=== PATIENT | female | born 1955 | race Caucasian/White ===

== ENCOUNTER 2017-08-31 14:02 | Emergency (ER) | payer SELFPAY ==
[2017-08-31] MEDS ORDERED: MECLIZINE HCL 25 MG TABLET ONE (14:34)
[2017-08-31] MEDS ORDERED: DEXAMETHASONE SOD PHOSPHATE 10MG/ML 1ML VIAL ONE (14:34)
[2017-08-31] MEDS ORDERED: SODIUM CHLORIDE 0.9% 1000ML 1,000 ML IV ONE (14:34)
[2017-08-31] MEDS ORDERED: ONDANSETRON HCL 4 MG/2 ML VIAL ONE (14:34)
[2017-08-31 14:45] LABS: BASOPHILS % (AUTO) 0.9 % (0.0-5.0); HEMATOCRIT 46.4 % (36-48); LYMPHOCYTES % (AUTO) 35.4 % (21.0-51.0); MEAN CORPUSCULAR HEMOGLOBIN 31.6 pg (27.0-33.0); MEAN CORPUSCULAR HGB CONC 34.8 g/dL (32.0-36.0); MEAN CORPUSCULAR VOLUME 90.8 fL (79-99); MONOCYTES % (AUTO) 5.5 % (3.0-13.0); NEUTROPHILS % (AUTO) 57.2 % (40.0-77.0); PLATELET COUNT (AUTO) 364 K/uL (130-400); RED BLOOD CELL COUNT(AUTO) 5.11 MIL/uL (4.00-5.50); RED CELL DISTRIBUTION WIDTH 14.3 % (11.0-15.5); WHITE BLOOD COUNT (AUTO) 7.8 K/uL (4.8-10.8)
[2017-08-31 14:54] LABS: CREATININE 0.7 mg/dL (0.5-1.5)
[2017-08-31 14:59] LABS: ALBUMIN 3.8 g/dL (3.5-5.0); BILIRUBIN,TOTAL 0.4 mg/dL (0.2-1.0); TOTAL PROTEIN, SERUM 7.4 g/dL (6.0-8.3)
[2017-08-31] MEDS ORDERED: LORATADINE 10 MG TABLET ONE (15:18)
[2017-08-31 15:35] LABS: APPEARANCE,URINE Clear (CLEAR); BILIRUBIN,URINE Negative (NEGATIVE); COLOR,URINE Yellow (YELLOW); GLUCOSE, URINE (UA) Negative (NEGATIVE); KETONES,URINE Negative (NEGATIVE); LEUKOCYTE ESTERASE ,URINE Negative (NEGATIVE); NITRATE,URINE Negative (NEGATIVE); OCCULT BLOOD,URINE Negative (NEGATIVE); PH,URINE 6.5 (5.0-8.0); PROTEIN,URINE Negative (NEGATIVE); UROBILINOGEN,URINE 0.2 mg/dL (0.2-1.0)
== END 2017-08-31 16:23 | disposition home or self-care (01) ==
LOC: EDH 14:02
DX: R11.0 Nausea (principal); H81.13 Benign paroxysmal vertigo, bilateral; J01.90 Acute sinusitis, unspecified; Z85.3 Personal history of malignant neoplasm of breast; Z88.8 Allergy status to other drugs, medicaments and biological substances; Z88.1 Allergy status to other antibiotic agents; Z91.041 Radiographic dye allergy status; Z72.0 Tobacco use
CPT/HCPCS: 36415; 70450; 80053; 81003; 85025; 93005; 96361; 96374; 96375; 99285; J1100; J2405; J7030

== ENCOUNTER 2018-07-25 07:55 | Day surgery (SDC) | payer SELFPAY ==
[2018-07-24 14:50] VITALS: BP 178/74
[2018-07-24 15:07] LABS: BASOPHILS % (AUTO) 1.1 % (0.0-5.0); EOSINOPHILS % (AUTO) 0.9 % (0.0-8.0); HEMATOCRIT 45.9 % (36-48); LYMPHOCYTES % (AUTO) 31.3 % (21.0-51.0); MEAN CORPUSCULAR HEMOGLOBIN 33.3 pg (27.0-33.0); MEAN CORPUSCULAR HGB CONC 35.7 g/dL (32.0-36.0); MEAN CORPUSCULAR VOLUME 93.2 fL (79-99); MONOCYTES % (AUTO) 6.3 % (3.0-13.0); NEUTROPHILS % (AUTO) 60.4 % (40.0-77.0); NUCLEATED RED BLOOD CELLS 0.1 % (0.0-0.19); PLATELET COUNT (AUTO) 372 K/uL (130-400); RED BLOOD CELL COUNT(AUTO) 4.93 MIL/uL (4.00-5.50); RED CELL DISTRIBUTION WIDTH 14.9 % (11.0-15.5); WHITE BLOOD COUNT (AUTO) 9.7 K/uL (4.8-10.8)
[2018-07-24 15:12] LABS: APPEARANCE,URINE Clear (CLEAR); BILIRUBIN,URINE Negative (NEGATIVE); COLOR,URINE Yellow (YELLOW); GLUCOSE, URINE (UA) Negative (NEGATIVE); KETONES,URINE Negative (NEGATIVE); LEUKOCYTE ESTERASE ,URINE Negative (NEGATIVE); NITRATE,URINE Negative (NEGATIVE); OCCULT BLOOD,URINE Negative (NEGATIVE); PROTEIN,URINE Negative (NEGATIVE)
[2018-07-25] VITALS (14 sets, daily range): BP systolic 102–131; BP diastolic 49–75
[~2018-07-25] VITALS: Ht 162.6 cm; Wt 74.6 kg
[~2018-07-25 07:55] MED LIST: ESOM20CA31 PO; LEVO88TA7 PO; LOSA25TA16 PO; MVIT PO; P-EP-94 PO; VITA100012 PO
[2018-07-25] MEDS: LACTATED RINGERS 1000ML 1,000 ML IV SCH ×2 (08:47→10:46)
[2018-07-25] MEDS ORDERED: SCOPOLAMINE HYDROBROMIDE 1 EACH ADH..PATCH TD ONE (09:50)
[2018-07-25] MEDS ORDERED: SUCCINYLCHOLINE 200MG/10ML SYR ONE (09:54)
[2018-07-25] MEDS ORDERED: LIDOCAINE PF 2% 5ML ABBOJECT ONE (09:54)
[2018-07-25] MEDS ORDERED: GLYCOPYRROLATE 1 MG/5 ML SYRINGE ONE (09:55)
[2018-07-25] MEDS ORDERED: MIDAZOLAM HCL 1 MG/ML 2ML VIAL ONE (09:55)
[2018-07-25] MEDS ORDERED: ONDANSETRON HCL 4 MG/2 ML VIAL ONE ×2 (09:55→10:46)
[2018-07-25] MEDS ORDERED: PROPOFOL 10 MG/ML 20ML VIAL IV ONE (09:55)
[2018-07-25] MEDS ORDERED: FENTANYL CITRATE PF 50 MCG/1 ML 2ML VIAL ONE ×2 (09:55→10:05)
[2018-07-25] MEDS ORDERED: NEOSTIGMINE 5MG/5ML SYR IV ONE (09:55)
[2018-07-25] MEDS ORDERED: ROCURONIUM 10MG/1ML SYR 10 MG/ML ML ONE (10:00)
[2018-07-25] MEDS ORDERED: BUPIVACAINE/PF 0.25% 30ML VIAL IJ ONE (10:10)
[2018-07-25] MEDS ORDERED: MEPERIDINE-PF 25 MG/ML SYG ONE ×2 (10:46→11:02)
[2018-07-25] MEDS ORDERED: METOCLOPRAMIDE 10 MG/2 ML VIAL ONE (10:46)
== END 2018-07-25 12:30 | disposition home or self-care (01) ==
LOC: DAH 07:55
PROVIDERS: ATTEND Surgery
DX: K43.2 Incisional hernia without obstruction or gangrene (principal); Z98.890 Other specified postprocedural states; Z93.3 Colostomy status; I10 Essential (primary) hypertension; Z98.51 Tubal ligation status; Z88.8 Allergy status to other drugs, medicaments and biological substances; J44.9 Chronic obstructive pulmonary disease, unspecified; Z87.891 Personal history of nicotine dependence
CPT/HCPCS: 36415; 49565; 49568; 81003; 85025; A4450; A4452; A4606; C1781; J0330; J2001; J2175 ×2; J2250; J2405 ×2; J2704; J2710; J2765; J3010 ×2; J3490 ×2; J7120 ×2

== ENCOUNTER 2018-12-11 02:32 | Observation (INO) | payer OTHER, SELFPAY ==
[~2018-12-11] VITALS: Ht 162.6 cm; Wt 76.6 kg
[~2018-12-11 02:32] MED LIST changes: -LOSA25TA16 PO; +LOSA25TA41 PO
[2018-12-11 03:11] LABS: BASOPHILS % (AUTO) 0.9 % (0.0-5.0); EOSINOPHILS % (AUTO) 1.3 % (0.0-8.0); LYMPHOCYTES % (AUTO) 19.5 % (21.0-51.0); MEAN CORPUSCULAR HGB CONC 37.1 g/dL (32.0-36.0); MEAN CORPUSCULAR VOLUME 94.3 fL (79-99); NEUTROPHILS % (AUTO) 71.3 % (40.0-77.0); NUCLEATED RED BLOOD CELLS 0.3 % (0.0-0.19); PLATELET COUNT (AUTO) 374 K/uL (130-400); RED BLOOD CELL COUNT(AUTO) 4.77 MIL/uL (4.00-5.50); RED CELL DISTRIBUTION WIDTH 14.3 % (11.0-15.5); WHITE BLOOD COUNT (AUTO) 10.7 K/uL (4.8-10.8)
[2018-12-11 03:16] LABS: CREATININE 0.7 mg/dL (0.5-1.5); POTASSIUM 3.9 mmol/L (3.5-5.1)
[2018-12-11 03:21] LABS: ALBUMIN 3.6 g/dL (3.5-5.0); BILIRUBIN,TOTAL 0.3 mg/dL (0.2-1.0); TOTAL PROTEIN, SERUM 7.2 g/dL (6.0-8.3)
[2018-12-11 03:40] LABS: B-TYPE NATRIURETIC PEPTIDE 16 pg/mL (0-100)
[2018-12-11 03:47] LABS: INR 0.92 (0.85-1.15); PARTIAL THROMBOPLASTIN TIME 30.5 SEC (26.3-35.5); PROTHROMBIN TIME 9.7 SEC (9.6-11.6)
[2018-12-11] MEDS ORDERED: IOHEXOL-350 75 ML VIAL IV ONE (04:10)
[2018-12-11] MEDS ORDERED: METHYLPREDNISOLONE SOD SUCC 125MG/2ML VIAL ONE (04:26)
[2018-12-11] MEDS ORDERED: DiphenhydrAMINE HCL 50 MG/ML VIAL ONE (04:26)
[2018-12-11] MEDS ORDERED: IPRATROPIUM/ALBUTEROL SULFATE 3 ML SOLUTION IH ONE ×2 (06:01→10:56)
[2018-12-11] MEDS ORDERED: AZITHROMYCIN 500MG+NS 250ML 250 ML IV ONE (07:09)
[2018-12-11] MEDS ORDERED: ACETAMINOPHEN 325 MG TAB PO PRN (07:45)
[2018-12-11] MEDS ORDERED: ONDANSETRON HCL 4 MG/2 ML VIAL IV PRN (07:45)
[2018-12-11] MEDS: METHYLPREDNISOLONE SOD SUCC 125MG/2ML VIAL IV SCH ×3 (07:45→23:41)
[2018-12-11] MEDS ORDERED: MORPHINE SULFATE 2 MG/ML 1ML SYG IV PRN (07:45)
[2018-12-11] MEDS: ENOXAPARIN SODIUM 40 MG/0.4 ML SYRINGE SQ SCH (09:00)
[2018-12-11] MEDS: PANTOPRAZOLE SODIUM 40 MG TABLET.DR PO SCH (09:00)
[2018-12-11] MEDS ORDERED: PANTOPRAZOLE SODIUM 40 MG TABLET.DR PO ONE (10:37)
[2018-12-11] MEDS ORDERED: ENOXAPARIN SODIUM 40 MG/0.4 ML SYRINGE SQ ONE (10:37)
[2018-12-11] MEDS: IPRATROPIUM/ALBUTEROL SULFATE 3 ML SOLUTION IH SCH ×3 (11:16→23:35)
[2018-12-11 11:54] VITALS: BP 137/74
[2018-12-11] MEDS ORDERED: AZITHROMYCIN 500MG+NS 250ML 250 ML IV SCH (15:15)
--- NOTE | 2018-12-11 15:37 | NUR ---
DCP CM met with pt discussed dc plans. Pt is independent prior to admission, lives at home with spouse. Denies any equipments/services. Pt feels safe to go back home, still drives, spouse able to assist with transportation and needs as necessary. DC plan to home once stable. CM to cont to follow up. Addendum: 12/11/18 at 1538 by SHANNEN MENESES LVN CM Amended: Links added.
[2018-12-11 16:12] VITALS: BP 137/88
[2018-12-11 19:18] VITALS: BP 135/70
--- NOTE | 2018-12-11 22:00 | NUR ---
SMOKER Pt went down to smoke with her .Advised re no clearance for her to go downstairs,she states "Nobody can stop me,I"m going home in am anyway regardless of what the Doctor say".
[2018-12-11 23:24] VITALS: BP 139/88
[2018-12-11] MEDS ORDERED: SODIUM CHLORIDE 3% FOR INHALATION 4 ML/AMP VIAL.NEB IH ONE (23:39)
[2018-12-11] MEDS ORDERED: LOSA50TA64 PO (23:46)
[2018-12-12 03:29] VITALS: BP 131/84
[2018-12-12 04:24] LABS: BASOPHILS % (AUTO) 0.2 % (0.0-5.0); HEMATOCRIT 45.7 % (36-48); LYMPHOCYTES % (AUTO) 6.9 % (21.0-51.0); MEAN CORPUSCULAR HEMOGLOBIN 32.8 pg (27.0-33.0); MEAN CORPUSCULAR HGB CONC 34.7 g/dL (32.0-36.0); MEAN CORPUSCULAR VOLUME 94.6 fL (79-99); MONOCYTES % (AUTO) 2.1 % (3.0-13.0); NEUTROPHILS % (AUTO) 90.8 % (40.0-77.0); PLATELET COUNT (AUTO) 416 K/uL (130-400); RED BLOOD CELL COUNT(AUTO) 4.84 MIL/uL (4.00-5.50); RED CELL DISTRIBUTION WIDTH 14.8 % (11.0-15.5); WHITE BLOOD COUNT (AUTO) 15.4 K/uL (4.8-10.8)
[2018-12-12 04:42] LABS: CREATININE 0.8 mg/dL (0.5-1.5); POTASSIUM 4.1 mmol/L (3.5-5.1)
[2018-12-12] MEDS: METHYLPREDNISOLONE SOD SUCC 125MG/2ML VIAL IV SCH (06:04)
[2018-12-12] MEDS: PANTOPRAZOLE SODIUM 40 MG TABLET.DR PO SCH (06:05)
[2018-12-12 08:00] VITALS: BP 134/77
[2018-12-12] MEDS: ENOXAPARIN SODIUM 40 MG/0.4 ML SYRINGE SQ SCH (09:00)
[2018-12-12] MEDS ORDERED: AMOX-429 PO (09:50)
[2018-12-12] MEDS ORDERED: ALBU2.5V2 IH (09:50)
[2018-12-12] MEDS ORDERED: METH4TAB3 PO (09:50)
--- NOTE | 2018-12-12 11:22 | NUR ---
Patient discharged in stable condition. at side. Patient appt made for Dr. Charlton for @ [id number]. Patient instructed on how to take new prescriptions and side effects that may occur. Instructed on SOB, Smoking Cessation and COPD. Instructed if SOB, chest pain, severe pain or changes in mental status, come back to ER. Patient verbalized understanding to all teaching. IV removed to left AC. Tip intact tolerated well. NO other questions or concerns voiced by patient.
[2018-12-12 11:36] VITALS: BP 133/76
== END 2018-12-12 11:29 | disposition home or self-care (01) ==
LOC: EDH 02:32 → EDHIP 02:33 → 4CH 11:08
PROVIDERS: ADMIT Internal Medicine; ATTEND Internal Medicine
DX: J44.1 Chronic obstructive pulmonary disease with (acute) exacerbation (principal); D72.829 Elevated white blood cell count, unspecified; E03.9 Hypothyroidism, unspecified; I10 Essential (primary) hypertension; K29.70 Gastritis, unspecified, without bleeding; F17.210 Nicotine dependence, cigarettes, uncomplicated; Z85.3 Personal history of malignant neoplasm of breast; Z90.11 Acquired absence of right breast and nipple; Z80.6 Family history of leukemia; Z80.7 Family history of other malignant neoplasms of lymphoid, hematopoietic and related tissues; Z80.8 Family history of malignant neoplasm of other organs or systems; Z98.51 Tubal ligation status
CPT/HCPCS: 36415 ×2; 71045; 71275; 80048; 80053; 83880; 84484; 85025 ×2; 85610; 85730; 87071; 87205; 93005; 94640 ×5; 94664; 96365; 96375; 96376 ×2; 99284; A4218 ×2; G0378 ×33; J0456 ×2; J1200; J1650; J2930 ×4; Q9967; 96366

== ENCOUNTER 2021-06-29 23:10 | Emergency (ER) | payer MEDICARE ==
[~2021-06-29] VITALS: Ht 162.6 cm; Wt 69.4 kg
[~2021-06-29 23:10] MED LIST changes: +ALBU2.5V2 IH; +AMOX-429 PO; -LOSA25TA41 PO; +LOSA50TA64 PO; +METH4TAB3 PO; -MVIT PO; -P-EP-94 PO; -VITA100012 PO
[2021-06-30] MEDS ORDERED: ONDANSETRON 4MG INJ ONE (01:48)
[2021-06-30] MEDS ORDERED: MORPHINE 4 MG SYG ONE (01:48)
[2021-06-30 01:54] LABS: BASOPHILS % (AUTO) 0.7 % (0.0-5.0); EOSINOPHILS % (AUTO) 1.7 % (0.0-8.0); HEMATOCRIT 43.6 % (36-48); LYMPHOCYTES % (AUTO) 22.3 % (21.0-51.0); MEAN CORPUSCULAR HGB CONC 38.8 g/dL (32.0-36.0); MEAN CORPUSCULAR VOLUME 92.8 fL (79-99); MONOCYTES % (AUTO) 6.8 % (3.0-13.0); NEUTROPHILS % (AUTO) 68.2 % (40.0-77.0); PLATELET COUNT (AUTO) 405 K/uL (130-400); RED CELL DISTRIBUTION WIDTH 14.5 % (11.0-15.5); WHITE BLOOD COUNT (AUTO) 12.1 K/uL (4.8-10.8)
[2021-06-30] MEDS ORDERED: MORPHINE 4 MG SYG IV ONE (02:00)
[2021-06-30] MEDS ORDERED: ONDANSETRON 4MG INJ IVP ONE (02:00)
[2021-06-30 02:04] LABS: CREATININE 0.7 mg/dL (0.5-1.5); POTASSIUM 4.2 mmol/L (3.5-5.1)
[2021-06-30 02:09] LABS: ALBUMIN 3.8 g/dL (3.5-5.0); BILIRUBIN,TOTAL 0.7 mg/dL (0.2-1.0)
[2021-06-30] MEDS ORDERED: KETOROLAC 15MG/ML VIAL (15MG/ML) ONE (04:13)
[2021-06-30] MEDS ORDERED: PANTOPRAZOLE 40 MG/VIAL ONE (04:25)
[2021-06-30] MEDS ORDERED: 0.9%NACL 1000ML 1,000 ML IV ONE (04:30)
[2021-06-30] MEDS ORDERED: FAMO-136 PO (05:11)
[2021-06-30 05:21] VITALS: BP 132/74
[2021-06-30] MEDS ORDERED: FAMOTIDINE 20MG TAB PO SCH (09:00)
== END 2021-06-30 05:26 | disposition home or self-care (01) ==
LOC: EDH 23:10
DX: K29.70 Gastritis, unspecified, without bleeding (principal); K29.80 Duodenitis without bleeding; I10 Essential (primary) hypertension; E03.9 Hypothyroidism, unspecified; Z88.1 Allergy status to other antibiotic agents; Z88.8 Allergy status to other drugs, medicaments and biological substances; Z85.3 Personal history of malignant neoplasm of breast; Z79.1 Long term (current) use of non-steroidal anti-inflammatories (NSAID); Z79.52 Long term (current) use of systemic steroids; Z79.899 Other long term (current) drug therapy
CPT/HCPCS: 36415; 74176; 80053; 84484; 85025; 96374; 96375; 99284; C9113; J1885; J2270; J2405; 93005